=== PATIENT | male | born 1985 | race Caucasian/White ===

== ENCOUNTER 2020-11-30 13:53 | Emergency (ER) | payer OTHER, SELFPAY ==
[2020-11-30 13:54] VITALS: BP 173/100; PULSE 85; RESP 16; TEMP 36.6; O2SAT 100; BMI 22.6
--- NOTE | 2020-11-30 14:06 | ED.VIS.INJ ---
History of Present Illness Chief Complaint: Laceration Informant: Patient Onset: Today Mechanism/Context: Incised Narrative: Is a 35-year-old male that denies any past medical history presenting with laceration to his right index finger. Patient is right-hand dominant. He was cutting up fruits and vegetables at home when he accidentally cut his finger. It continued to bleed which is why he came to the emergency room. He also notes that the finger feels a little cold. Patient is on any blood thinners. He is not sure his last tetanus is. He denies any difficulty moving the finger. No other complaints at this time. Injury occurred approximately 1 hour prior to arrival. Tetanus Immunization: Unknown Past Medical History - Allergies and Home Meds Allergies/Adverse Reactions: Allergies No Known Allergies Allergy (Verified 11/30/20 13:55) Primary Care Physician: Sissy Patel MD [STAFF PHYSICIAN] - Past Medical History: None Surgical History: noncontributory Lives: Spouse/ Significant Other Smoking Status: Current every day smoker Review of Systems General: Denies: Chills, Fever, Sweats Eyes: Denies: Visual changes - bilaterally, Diplopia ENT: Denies: Rhinorrhea, Sore throat Cardiovascular: Denies: Chest pain, Palpitations Respiratory: Denies: Dyspnea, Cough Gastrointestinal: Denies: Abdominal pain, Nausea, Vomiting Musculoskeletal: Reports: Extremity Pain - right index finger . Denies: Back pain, Swelling Skin: Reports: Wounds - right index finger . Denies: Rash Neurological: Denies: Weakness, Numbness Physical Exam Vital Signs/Narrative: Vital Signs Temp Pulse Resp BP Pulse Ox 11/30/20 13:54 97.9 F 85 16 173/100 H 100 Inital Vital Signs reviewed: Yes General: Well nourished, Well developed Head: Normocephalic, Atraumatic Eyes: Perrl, EOMI ENT: No trauma Neck: Nontender, Full ROM Cardiovascular: Regular rate, Regular rhythm Respiratory: No distress Back: Nontender Extremeties: No obvious bony deformity. Normal range of motion. No defects in flexion or extension of the right index finger. Skin: Normal color, No rash, Trauma - 3 cm linear laceration of the right index finger over the radial, distal aspect. No involvement of the nailbed Neurological: Alert, Oriented x3, Cranial nerves II-XII grossly intact, Normal Strength, Normal Sensation Psychological: Normal affect - Glascow Coma Scale Eye Opening: Spontaneous Motor: Obeys Commands Verbal: Oriented Coma Scale Total: 15 Diagnostic/Tx/Re-eval - Medical Decision Making Is evaluated for laceration of his right index finger. Laceration repair performed. See procedure note. He is neurovascularly intact. I do not think imaging is indicated. Given return precautions. Laceration No standard instances Length: 1.57 in Depth: Skin Shape: Linear Laceration Repair: Digital block Irrigated (ml): 999 - running water Number of Sutures/Everly: 4 Stitch Description: Ethilon, Simple, 4-0 ED Disposition - Plan for ED Patient: Disposition: Home or Assisted Living Diagnosis: Laceration of right index finger Instructions: ED Laceration, Hand: All Closures Referrals: Sissy Patel MD [STAFF PHYSICIAN] - Additional Instructions: Sutures need to be removed in 10 days. You can return to the emergency room or follow-up with a primary care doctor.
[2020-11-30] MEDS: Diphth,Pertuss(Acell),Tet Vac 0.5 ML Vial IM (14:53)
[2020-11-30] MEDS: Lidocaine 1% (20 ml mdv) 20 ML Vial INFILT (14:54)
== END 2020-11-30 15:24 | disposition home or self-care (01) ==
LOC: ED 15:11
PROVIDERS: Emergency Provider Emergency Medicine
DX: S61.210A Laceration without foreign body of right index finger without damage to nail, initial encounter (principal); Z23 Encounter for immunization; W45.8XXA Other foreign body or object entering through skin, initial encounter; Y93.G3 Activity, cooking and baking; Y92.9 Unspecified place or not applicable; Y99.9 Unspecified external cause status; F17.200 Nicotine dependence, unspecified, uncomplicated
CPT/HCPCS: 12002; 90715; 99283